=== PATIENT | female | born 2005 | race Two or more races ===

== ENCOUNTER 2024-11-25 16:33 | Emergency (ER) | payer MEDICAID ==
[2024-11-25 17:06] LABS: GLUCOSE,URINE NORMAL (NORMAL); OCCULT BLOOD,URINE LARGE (NEGATIVE)
[2024-11-25 17:07] LABS: APPEARANCE,URINE CLOUDY (CLEAR)
[2024-11-25 17:14] LABS: SQUAMOUS EPITHELIAL CELLS,UR FEW (NS,R,O)
[2024-11-25] MEDS: Phenazopyridine 95 MG Tab PO STA (18:06)
[2024-11-25] MEDS: Ketorolac 30 MG/ML SDV IM ONE (18:06)
== END 2024-11-25 18:13 | disposition home or self-care (01) ==
LOC: FB.ED 16:33
DX: N39.0 Urinary tract infection, site not specified (principal); G89.18 Other acute postprocedural pain; Z79.899 Other long term (current) drug therapy
CPT/HCPCS: 81001; 87086; 87088; 87186; 96372; 99284; A9270; J1885